=== PATIENT | male | born 1960 | race Caucasian/White ===

== ENCOUNTER → 2016-07-07 | Outpatient (CLI) | payer MEDICARE, OTHER ==
[2016-07-07 12:35] LABS: HEMOGLOBIN 15.6 gm/dl (14.0-17.5); RED BLOOD COUNT 4.81 M/UL (4.20-5.50); WHITE BLOOD COUNT 6.8 K/UL (4.5-11.0)
[2016-07-07 12:53] LABS: BUN/CREATININE RATIO 9 (0-10)
== END ==
LOC: LAB 11:48
PROVIDERS: Physician Assistant
DX: B18.2 Chronic viral hepatitis C (principal); K74.60 Unspecified cirrhosis of liver
CPT/HCPCS: 36415; 80053; 85027

== ENCOUNTER 2016-08-04 13:00 | Emergency (ER) | payer MEDICARE, OTHER | END 2016-08-04 14:55 | disposition home or self-care (01) | LOC: ER1 13:00 | DX: S20.219A Contusion of unspecified front wall of thorax, initial encounter (principal); B19.20 Unspecified viral hepatitis C without hepatic coma; Z79.899 Other long term (current) drug therapy; W22.8XXA Striking against or struck by other objects, initial encounter | CPT/HCPCS: 71101; 73090; 99285 ==

== ENCOUNTER → 2016-08-18 | Outpatient (CLI) | payer MEDICARE, OTHER ==
[2016-08-18 10:25] LABS: HEMOGLOBIN 15.4 gm/dl (14.0-17.5); RED BLOOD COUNT 4.72 M/UL (4.20-5.50); WHITE BLOOD COUNT 5.1 K/UL (4.5-11.0)
[2016-08-18 10:56] LABS: BUN/CREATININE RATIO 10 (0-10)
== END ==
LOC: LAB 09:32
PROVIDERS: Physician Assistant
DX: K74.60 Unspecified cirrhosis of liver (principal); K76.9 Liver disease, unspecified; B18.2 Chronic viral hepatitis C
CPT/HCPCS: 36415; 80053; 85027

== ENCOUNTER 2020-06-26 13:55 | Emergency (ER) | payer MEDICARE ==
[2020-06-26 14:25] LABS: HEMOGLOBIN 14.4 gm/dl (14.0-17.5); RED BLOOD COUNT 4.4 M/UL (4.20-5.50); WHITE BLOOD COUNT 5.3 K/UL (4.5-11.0)
[2020-06-26 15:11] LABS: BUN/CREATININE RATIO 6 (0-10)
[2020-06-26] MEDS ORDERED: ZOFRAN4 MG PO (15:40)
== END 2020-06-26 15:59 | disposition home or self-care (01) ==
LOC: ER1 13:55
PROVIDERS: Physician Assistant
DX: R51.9 Headache, unspecified (principal); R19.7 Diarrhea, unspecified; R11.0 Nausea; Z20.822 Contact with and (suspected) exposure to COVID-19; M79.10 Myalgia, unspecified site; Z87.891 Personal history of nicotine dependence
CPT/HCPCS: 0240U; 80053; 81001; 83690; 85025; 96374; 99284; J2405

== ENCOUNTER 2020-09-12 11:49 | Emergency (ER) | payer MEDICARE ==
[~2020-09-12 11:49] MED LIST: ZOFRAN4 MG PO
[2020-09-12 13:13] LABS: HEMOGLOBIN 13.9 gm/dl (14.0-17.5); RED BLOOD COUNT 4.17 M/UL (4.20-5.50); WHITE BLOOD COUNT 15.1 K/UL (4.5-11.0)
[2020-09-12 13:35] LABS: BUN/CREATININE RATIO 11 (0-10)
[2020-09-12] MEDS ORDERED: DOXYCYCLINE HY100 M2 PO (17:51)
[2020-09-12] MEDS ORDERED: ZOFRAN4 MG PO (17:51)
[2020-09-12] MEDS ORDERED: FLORASTOR250 MG PO (17:52)
[2020-09-12] MEDS ORDERED: DELSYM30 MG/5 ML PO (17:52)
== END 2020-09-12 18:10 | disposition home or self-care (01) ==
LOC: ER1 11:49
PROVIDERS: Emergency Medicine
DX: R10.84 Generalized abdominal pain (principal); R11.2 Nausea with vomiting, unspecified; R19.7 Diarrhea, unspecified; J18.9 Pneumonia, unspecified organism; Z20.822 Contact with and (suspected) exposure to COVID-19; Z86.19 Personal history of other infectious and parasitic diseases
CPT/HCPCS: 80053; 81001; 82150; 82272; 83690; 85025; 85610; 96374; 96375; 99284; C9113; J2270; J2405; J7030; Q9967; U0002